=== PATIENT | female | born 1985 | race Caucasian/White ===

== ENCOUNTER 2017-09-28 14:43 | Emergency (ER) | payer OTHER ==
[2017-09-28] MEDS: KETOROLAC 60 MG INJ IM (16:28)
== END 2017-09-28 17:25 | disposition home or self-care (01) ==
LOC: FTE 14:43
DX: M94.0 Chondrocostal junction syndrome [Tietze] (principal)
CPT/HCPCS: 71045; 81025; 93005; 96372; 99284-25